=== PATIENT | male | born 1935 ===

== ENCOUNTER 2019-03-15 00:41 | Inpatient (IN) | payer MEDICARE, OTHER ==
[2019-03-14 14:55] LABS: INR 0.99
[~2019-03-15] VITALS: Ht 190.5 cm; Wt 117.9 kg
[2019-03-15] VITALS (18 sets, daily range): BP systolic 112–154; BP diastolic 69–106
[~2019-03-15 00:41] MED LIST: ASPI-1017 PO; CHOL100094 PO; DOC100 PO; FISH OIL1 CAP PO; IBU600 PO; LISI-349 PO; MOM PO; MULT1TAB64 PO; NAPR-1043 PO; PER PO; RIV10 PO; TRA50 PO; TURM1TAB PO; [UNRECOGNIZED DRUG - CODE] TP; protandim PO
[2019-03-15] MEDS ORDERED: ACETAMINOPHEN 500 MG TAB PO ONE (09:00)
[2019-03-15] MEDS ORDERED: NS(*) 0.9% 100 ML BAG 100 ML ONE (09:10)
[2019-03-15] MEDS ORDERED: ONDANSETRON 4 MG/2 ML VIAL ONE (10:22)
[2019-03-15] MEDS ORDERED: KETAMINE HCL-NS 50 MG/5 ML SYR ONE (10:22)
[2019-03-15] MEDS ORDERED: PROPOFOL EMUL(*) 10MG/ML 20 ML 20 ML ONE (10:22)
[2019-03-15] MEDS ORDERED: LIDOCAINE MPF 1% 5 ML VIAL ONE (10:22)
[2019-03-15] MEDS ORDERED: fentaNYL CITR 100 MCG/2 ML AMP ONE (10:22)
[2019-03-15] MEDS ORDERED: FAMOTIDINE 20 MG TAB PO ONE (10:45)
[2019-03-15] MEDS ORDERED: ROPIVACAINE/EPI/CLONIDINE/KET 50 ML SYRINGE INJ ONE (10:45)
[2019-03-15] MEDS ORDERED: MIDAZOLAM 2 MG/2 ML VIAL IVP PRN (10:45)
[2019-03-15] MEDS ORDERED: NORMOSOL R SOLN(*) 1000 ML BAG 1,000 ML IV PRN (10:45)
[2019-03-15] MEDS ORDERED: CELECOXIB 200 MG CAP PO ONE (10:45)
[2019-03-15] MEDS ORDERED: TRANEXAMIC AC 1000 MG/10ML SDV 1,000 MG in DEXTROSE 5% 50 ML BAG 50 ML IV ONE (10:45)
[2019-03-15] MEDS ORDERED: PREGABALIN 75 MG CAPSULE PO ONE (10:45)
[2019-03-15] MEDS ORDERED: LIDOCAINE/SOD BICARB 8.4% SYR ID ONE (10:45)
[2019-03-15] MEDS ORDERED: BACITRACIN 50000 UNIT/VIAL 100,000 UNIT in NS 0.9% 3000 ML IRRIGATION BAG 3,000 ML IR ONE (10:45)
[2019-03-15] MEDS ORDERED: ceFAZolin(*) 2GM/D5W 50ML 50 ML IVPB ONE (10:45)
--- NOTE | 2019-03-15 14:54 | RADIOLOGY IMAGING REPORT ---
FACILITY: [facility] - [place] PATIENT NAME: Lazarus Dominguez : 1935 MR: [id number] V: [id number] EXAM DATE: ORDERING PHYSICIAN: FABIOLA RICHARD TECHNOLOGIST: Location: [facility] [place] Patient: Lazarus Dominguez : 1935 Visit/Account:[id number] Date of Sevice: 03/15/2019 HIP IN OR RIGHT HISTORY: Right total hip arthroplasty ADDITIONAL HISTORY: None. COMPARISON: None. FINDINGS: Single view was obtained of the right hip. There is a right hip prosthesis in place with anatomic al ignment of the components. There is no evidence of fracture or other acute complication. Visualized portions of the bony pelvis are unremarkable. IMPRESSION: Right hip prosthesis with anatomic alignment of the components. There is no radiographic evidence of an acute complication. Report Dictated By: Leona Tang MD at 03/15/2019 2:43 PM Report E-Signed By: Leona Tang MD at 03/15/2019 2:45 PM WSN:[email or web address]
--- NOTE | 2019-03-15 14:58 | RADIOLOGY IMAGING REPORT ---
FACILITY: [facility] PATIENT NAME: Lazarus Dominguez : 1935 MR: [id number] V: [id number] EXAM DATE: ORDERING PHYSICIAN: FABIOLA RICHARD TECHNOLOGIST: [place] [facility] [place] Lazarus Dominguez : 1935 Visit/Account:[id number] Date of Sevice: 03/15/2019 Pelvis one view: HISTORY: Post op placement. Right hip total arthroplasty COMPARISON: 10/26/2012 FINDINGS: Supine view was obtained of the pelvis. Right hip prosthesis is in place with anatomic ali gnment of the components. There is no fracture. There are no findings to suggest loosening of the p rosthesis. Pelvic ring is intact. Left hip prosthesis is in place with anatomic alignment of the co mponents. Degenerative changes present in the lower lumbar spine. IMPRESSION: Interval placement of a right hip prosthesis with anatomic alignment of the components. There is no radiographic evidence of an acute complication. Report Dictated By: Leona Tang MD at 03/15/2019 2:50 PM Report E-Signed By: Leona Tang MD at 03/15/2019 2:51 PM WSN:[email or web address]
[2019-03-15] MEDS ORDERED: diphenhydrAMINE 25 MG CAP PO PRN (15:30)
[2019-03-15] MEDS ORDERED: MAGNESIUM HYDROXIDE* 30ML UDCP PO PRN (15:30)
[2019-03-15] MEDS ORDERED: LR 1000 ML BAG 1000 ML IV PRN (15:30)
[2019-03-15] MEDS ORDERED: PROMETHAZINE 25 MG/ML 1 ML AMP IVP PRN (15:30)
[2019-03-15] MEDS ORDERED: BISACODYL 10 MG SUPP PR PRN (15:30)
[2019-03-15] MEDS ORDERED: MAGNESIUM CITRATE 300 ML BTL PO PRN (15:30)
[2019-03-15] MEDS ORDERED: FLUSH 10 ML SYR IVP PRN (15:30)
[2019-03-15] MEDS ORDERED: diphenhydrAMINE 50 MG/ML VIAL IVP PRN (15:30)
[2019-03-15] MEDS ORDERED: ONDANSETRON 4 MG/2 ML VIAL IVP PRN (15:30)
[2019-03-15] MEDS ORDERED: ZOLPIDEM TARTRATE 5 MG TAB PO PRN (15:30)
[2019-03-15] MEDS ORDERED: HYDROmorphone HCL 2 MG/ML SDV IVP PRN (15:30)
[2019-03-15] MEDS: APAP/HYDROCODONE 325/5 TAB PO PRN ×3 (15:36→22:29)
[2019-03-15] MEDS ORDERED: LISINOPRIL 20 MG TAB PO ONE (16:00)
--- NOTE | 2019-03-15 16:14 | Hospitalist Consultation ---
History of Present Illness Requesting Physician Dr Resendiz Reason for Consult medical management of comorbidities Chief Complaint R hip arthroplasty History of Present Illness 83M admitted after R NEGRA. PMHx significant for constipation and HTN. Tolerated surgery well without complication. Hospitalist service was consulted for management of medical comorbidities. Denies any current concern other than cold, provided warm blanket. History Problems: (1) HTN (hypertension) (2) Arthritis of right hip Home Meds Reported Medications Tea Tree Oil (TEA TREE OIL) 30 Ml Oil, 30 ML TP QDAY 03/08/19 Turm/Ging/Denzel/Yuc/Sonu/Akin/Hor (TUMERSAID TABLET) 1 Each Tablet, 2 EACH PO QDAY 03/08/19 Al Hydroxide/Mg Hydroxide (Milk Of Magnesia) 30 Ml Susp, 30 ML PO Q8H PRN 10/28/12 Docusate Sodium (Colace 100 Mg) 100 Mg Cap, 100 MG PO BID, #40 0 Refills While taking narcotics 10/28/12 Naproxen Sodium (Aleve) 220 Mg Tablet, 220 MG PO BID No NSAIDS until done with Xarelto 10/23/12 Lisinopril (Lisinopril) 20 Mg Tablet, 20 MG PO QAM Restart on 10/30/2012 10/23/12 Discontinued Reported Medications Tramadol Hcl (Ultram) 50 Mg Tab, 50 MG PO Q6H, #80 0 Refills 10/28/12 Ibuprofen (MOTRIN (OR EQUIV)) 600 Mg Tab, 600 MG PO Q6H, #80 0 Refills 10/28/12 Rivaroxaban (XARELTO) 10 Mg Tablet, 10 MG PO QDAY for 35 Days, 0 Refills 10/28/12 Aspirin/Caffeine (JOSE LUIS BACK & BODY CAPLET) 1 Each Tablet, 1 EACH PO QDAY Restart when done with Xarelto 10/23/12 Cholecalciferol (Vitamin D) 1,000 Unit Tablet, 1000 UNIT PO DAILY 10/23/12 Dilley-3 Fatty Acids (Fish Oil) 1 Cap Capsule, 1 CAP PO QDAY 10/23/12 Multivitamin (MULTI VITAMIN DAILY) 1 Each Tablet, 1 EACH PO DAILY 10/23/12 Allergies: Coded Allergies: oxycodone HCl (Verified Adverse Reaction, Intermediate, MENTAL STATUS BETZY, 10/29/12) Patient History: FH: breast cancer MOTHER FH: stroke FATHER Hx Smoking: No (CHEWING TOBACCO-1 CAN EVERY 2 WEEKS ) Smoking Status: Never Smoker Caffeine Intake: Coffee Caffeine/Cups Per Day: 4 CPD Hx Alcohol Use: No Hx Substance Use Disorder: No Review of Systems All Systems Reviewed/Normal: Yes, Except as Noted Cardiovascular: No Chest Pain Gastrointestinal: No Nausea, No Vomiting Musculoskeletal: No Pain Exam Vital Signs Vital Signs Date Time Temp Pulse Resp B/P (MAP) Pulse Ox O2 Delivery O2 Flow Rate FiO2 03/15/19 15:48 92 High-Flow Nasal Cannula 2.0 03/15/19 15:15 72 16 03/15/19 09:36 98.8 154/95 (114) General Appearance: Alert, Awake, No Acute Distress, Afebrile Neuro: No Gross deficits Cardiovascular: Normal Rhythm & Peripheral Pulses Respiratory: No Respiratory Distress GI: Abd Soft and Non-Tender Extremities: Soft and Non Tender, Warm, Pulses, Perfused Assessment and Plan Problems: (1) Arthritis of right hip Assessment & Plan: Status post R NEGRA. Management per primary. 325mg ASA for DVT PPx. (2) HTN (hypertension) Assessment & Plan: Continue chronic lisinopril. (3) Constipation Assessment & Plan: History of well, well controlled on docusate. Will add scheduled Miralax while taking opiate analgesics. Venous Thromboembolism Antithrombotics Is Pt On Any Antithrombotics?: Yes ARIANA HAAS DO Mar 15, 2019 16:14
--- NOTE | 2019-03-15 17:22 | NUR ---
Physical Therapy Impression PT and Nursing both present for initial visit as pt indicates that after previous encounters of anesthesia he has experienced syncopal episodes. Pt was non-symptomatic with position changes and BP's check throughout with Nursing present to assist. After completing side step to head of bed with FWW and CGA, pt became more pale and after returning to supine, pt then became symptomatic. Delayed onset of BP decline and symptomology with high BP initially. Recommend pt use urinal for voiding through the night and attempt orthostatic BP checks with both PT and Nursing present in AM after breakfast. High fall risk associated with current situation. Physical Therapy Goals 1. Pt to be CGA/Min assist for bed mobility and sup<>sit trnsfrs 2. Pt to be SBA/CGA for sit to/from stand transfers 3. Pt to ambulate x 100' with FWW and SBA/CGA with VS in safe range 4. Pt to demo understanding and compliance with posterior hip precautions 5. Pt to jaky up/down 4 steps with rail and SBA/CGA Patient's Goals
[2019-03-15] MEDS: ceFAZolin(*) 2GM/D5W 50ML 50 ML IVPB SCH (20:29)
[2019-03-15] MEDS: ASPIRIN 325 MG TAB PO SCH (20:29)
[2019-03-16] VITALS (10 sets, daily range): BP systolic 85–125; BP diastolic 53–90
[2019-03-16] MEDS: ceFAZolin(*) 2GM/D5W 50ML 50 ML IVPB SCH ×2 (04:23→11:46)
[2019-03-16] MEDS: APAP/HYDROCODONE 325/5 TAB PO PRN ×3 (04:24→15:12)
--- NOTE | 2019-03-16 05:09 | OPERATIVE REPORT 1 ---
EVENT DATE: March 15, 2019 SURGEON: Harish Resendiz MD ANESTHESIOLOGIST: Alessio Woodward DO ANESTHESIA: General plus spina. ASSISTANT PROSECUTING ATTORNEY: Ezra Kay PA-C PREOPERATIVE DIAGNOSIS Right hip osteoarthritis. POSTOPERATIVE DIAGNOSIS Right hip osteoarthritis. PROCEDURE PERFORMED Right total hip arthroplasty. FINDINGS The patient had a significant amount of arthritic changes associated with the hip. It was amenable for a total hip replacement. ESTIMATED BLOOD LOSS About 300 mL. DRAINS None. COMPLICATIONS None. TOURNIQUET TIME Not applicable. IMPLANTS USED A Baldomero size 68 regular metal cluster-hole shell cup and a neutral liner; a 16.25 standard stem with a 40 +0 head and then a dome hole plug and three screw hole plugs. SPECIMENS None. INDICATIONS AND HISTORY This patient is an 83-year-old male who presented to my clinic for evaluation of right hip arthritis and irritation that have been going on for some time. He had had his left hip replaced previously, and he was continuing to do okay with his right hip, but then it started giving him more pain and irritation, so he wanted to go ahead with a total hip arthroplasty. He understood the risks and benefits associated with this, and also that his advanced age may cause more complications associated with it, and he said he was willing to risk that. After discussion of the risks and benefits, an informed consent was obtained at the last clinic visit, and we got him set up to do this today. DESCRIPTION OF PROCEDURE The patient was brought in to the operating room. He and the procedure were both verified. He was first given a spinal by Anesthesia and then placed supine on the operative table and induced and intubated by Anesthesia. He was then turned to the lateral decubitus position with the right hip toward the ceiling, and then the right hip was prepped and draped in the usual fashion and a time- out was observed, verifying the correct patient and procedure. The standard incision was made over the posterolateral aspect of the hip. It was taken through the skin and subcutaneous tissue until I got down to the greater trochanter. Once I was down to the greater trochanter, I then cut through the IT band and then through the gluteal musculature in order to split this apart. I then went to the short external rotators and cut some of the short external rotators and then cut the piriformis and then tagged it for later repair. I then went into the capsule and made a T-shaped incision within the capsule in order to then expose the femoral head, and then dislocated it without too much difficulty. Once I did this, there were a few osteophytes that came out in this area. We then removed those and then cut the femoral neck without any major difficulty in accordance with the Baldomero system. I then irrigated with copious amounts of saline and went into the acetabulum, where I removed some more osteophytes in this area and also a large osteophyte off the posterior aspect that was loose, and some loose bodies from within the joint. Once I then was able to put retractors 360 degrees around the acetabulum, I was then able to remove what little labrum remained and then get down to the true pelvic floor. I then commenced reaming with a [address] up to a 65 mm reamer until we had good rim fit, and then put in a 66 cluster- hole shell without any difficulty. This held well and was down-seated well and had no signs of movement, so then we put in the dome hole plug and three screw hole plugs without any issues, and then put in the final liner. I then irrigated with copious amounts of saline and also used Irrisept throughout this entire time in order to cleanse the area. I then turned attention to the femur, where I was able to internally rotate and flex the leg and then put a retractor posteriorly. I then was able to put in a box cutting osteotome followed by a canal-finding reamer and then a lateralizing reamer. We then commenced broaching all the way up from a 4 to a 16.25. The 16.25 did have pretty good fit, and so therefore we put the trial head and neck on and then relocated it and put it through the motion. It was fairly stable, and the leg lengths appeared good. We then took an intraoperative x-ray showing that everything was in good position. We had good stem fill throughout the femur, and the leg lengths pretty appropriate on the x-rays, but it was difficult to tell secondary to the patient's body habitus. I was then able to dislocate the hip again and irrigate it again with copious amounts of saline using pulsatile lavage and the Irrisept. I then put in the final stem, which was a 16.25 stem, and then the 40 ceramic head on top of this. We then relocated it and put it through range of motion again. It seemed to be stable once again. Therefore, we closed the posterior capsule and then reattached the piriformis through drill holes in the posterior femur, and then irrigated it again and put the pain cocktail in throughout the soft tissue, and then closed the gluteal musculature as well as the IT band using a #2 Quill and then 2-0 Vicryl in the fat layer, followed by a 2-0 Stratafix in the subcutaneous layer, and then a subcuticular 4-0 running Monocryl, then followed by a bioadhesive dressing. The wound was then dressed with soft dressing, and then the patient was awakened and extubated and transferred to PACU with an abduction pillow. He will be admitted overnight to my service. MERCEDES
[2019-03-16] MEDS: LISINOPRIL 20 MG TAB PO SCH (09:00)
--- NOTE | 2019-03-16 09:03 | Hospitalist Progress Note ---
Subjective Progress Notes Subjective This patient was admitted for knee replacement. He had no acute events overnight. Patient Complains of: Cardiovascular: No: Chest Pain Respiratory: No: Shortness of Breath Physical Exam Vital Signs Date Time Temp Pulse Resp B/P (MAP) Pulse Ox O2 Delivery O2 Flow Rate FiO2 03/16/19 07:46 91 Nasal Cannula 2.0 03/16/19 07:24 98.2 82 15 114/59 (77) Intake and Output 03/16/19 07:03 Intake Total 2860 ml Output Total 750 ml Balance 2110 ml Intake Oral 1100 ml IV Total 1760 ml Output Urine Total 650 ml Estimated Blood Loss 100 ml # Voids 2 Cardiovascular: Regular Rate and Rhythm Respiratory: Clear to Auscultation Result Diagram: 03/16/19 0516 Assessment and Plan Problems: (1) Arthritis of right hip Assessment & Plan: He is on aspirin prophylaxis. (2) HTN (hypertension) Assessment & Plan: He is on chronic treatment with lisinopril. (3) Constipation Assessment & Plan: History of well, well controlled on docusate. Will add scheduled Miralax while taking opiate analgesics. Exam Sepsis Risk: No Definite Risk LANCE COELLO DO Mar 16, 2019 09:03
[2019-03-16] MEDS: POLYETHYLENE GLYCOL 17 GM PKT PO SCH (09:35)
--- NOTE | 2019-03-16 10:37 | Medical Nutrition Therapy ---
Nutrition Anthropometrics Height (Inches): 75.00 Height (Calculated Centimeters: 190.996688 Weight (Pounds): 260 Weight (Calculated Kilograms): 117.934 BMI: 32.5 Hx Weight Loss: No Hx Weight Gain: No Zurdo Nutrition Score: Adequate Zurdo Nutrition Risk Score: 14 Dietary Referral Nutrition Risk Factors: Nutrition Risk Comment: Physical Findings Physical Appearance: Obese BMI 30-39 Skin Appearance Skin Appearance: Edema Edema Location Modifier: Edema Location: Type of Edema: Degree of Edema: Gastrointestinal Symptoms GI Symtoms: Tube Present: Bowel Sounds: Recent Bowel Pattern: Stool Characteristics: Nutrition/Food History Good Snacks: Typically eats 2-3 meals per day Nutritional Diagnosis Nutritional Risk Acuity 3: OR & > 80 yrs Past Medical History: HTN, Constipation Nutritional Acuity: 3-Mild Energy Requirement: 3149 Protein Requirement: 118 (1g/kg) Fluid Requirement: 2954 (25mL/kg) Diet Type: Diet as Tolerated GRIS/REG Nutrition Intervention: Cont diet as ordered Nutrition Monitoring & Eval Nutrition Goals: Eat 75-100% Meal Nutrition Follow-Up: Good Intake Nutrition Monitoring: Intake, Weight RD Patient Assessment Time: [address] Assessment Type: RD Assessment Patient Nutrition Acuity: 3-Mild Follow Up Date: Mar 21, 2019 Nutritional Comment: 03/16/19: Spoke with pt and this am. Pt appears well nourished, he reports eating 2-3 meals per day. His reported usual body weight is 260 lbs. He was admitted for R Hip Athroplasty. PMH includes HTN, constipation, inguinal hernia, umbilical hernia. Pertinent current rx include lisinopril, milk of magnesia, dulcolax. Spoke with pt about importance of protein for healing s/p hip surgery. He is currently on diet as tolerated eating 75% x last 2 meals. Suggested consume ~30g protein per meal and discussed foods containing protein. Also recommended following a low sodium diet to help manage HTN. Pt stated he wasn't interested at this time. Will continue to monitor intake, weight, need for additional nutrition education.YASSINE KNIGHT Mar 16, 2019 10:37
--- NOTE | 2019-03-16 11:38 | NUR ---
Physical Therapy Impression PT and nursg both present to assist and monitor BP during transfers due to previous hx of syncope after surgery. Pt did demo delayed onset of orthostatic hypotension with yesterday's session, after side stepping at edge of bed. Pt tolerated supine to sit well with only small decrease in BP. After sitting x 5 minutes at EOB pt tolerated sit to stand with SBA/CGA and BP again decreased, but only slightly and no symptoms reported. Close W/C follow used for ambulation to BR and pt transferred sit to/from stand without difficulty. After brief rest, and again no reported symptoms of decreased BP, pt tolerated ambulation x 30' into hallway and ascended a step. Pt then reported feeling slightly woozy and W/C was available to sit. Pt stated that he would like to try walking back to room. At doorway, pt stated he was beginning to feel weak and was agreeable to sitting in W/C. Pt was then propelled into room and experienced a syncopal event while seated. PT elevated LE's while Nursing increased supplemental O2 and checked BP at 94/58. Pt roused fairly quickly. As we wheeled the W/C around to access the bed pt experienced another sycopal episode with urinary incontinence. After he safely roused from this he was able to complete a Mod assist stand/pivot transfer from W/C to bed and was placed in Trendelenburg position with BP improved at that time. PT assisted with pt care and pt was then left with nursing at end of session. Physical Therapy Goals 1. Pt to be CGA/Min assist for bed mobility and sup<>sit trnsfrs 2. Pt to be SBA/CGA for sit to/from stand transfers 3. Pt to ambulate x 100' with FWW and SBA/CGA with VS in safe range 4. Pt to demo understanding and compliance with posterior hip precautions 5. Pt to jaky up/down 4 steps with rail and SBA/CGA Patient's Goals
--- NOTE | 2019-03-16 17:23 | NUR ---
Physical Therapy Impression BP checked with pt in reclined supine and non-symptomatic. Pt then placed in chair position with leg portion of bed lowered for approximately 10 minutes prior to dinner. Pt was not symptomatic and tolerated eating well. BP checked again and was stable. Pt then moved into chair position with frame tipped up to allow us to simulate a more upright position similar to a tilt table. Pt's BP did decrease to 106/67 with this and pt was somewhat symptomatic, but no syncope occurred. Pt tolerated this position x 30 minutes after meal and indicated that he planned to sleep in a reclined supine position rather than flat tonight, as this was more comfortable. SBAR with nursing. Pt encouraged to be up in chair position for breakfast tomorrow and until PT arrives for first session planned at 9:45, to assist in tolerance for position changes. Physical Therapy Goals 1. Pt to be CGA/Min assist for bed mobility and sup<>sit trnsfrs 2. Pt to be SBA/CGA for sit to/from stand transfers 3. Pt to ambulate x 100' with FWW and SBA/CGA with VS in safe range 4. Pt to demo understanding and compliance with posterior hip precautions 5. Pt to jaky up/down 4 steps with rail and SBA/CGA Patient's Goals
[2019-03-16] MEDS: ASPIRIN 325 MG TAB PO SCH (21:49)
[2019-03-17 03:56] VITALS: BP 138/87
[2019-03-17 07:28] VITALS: BP 158/94
[2019-03-17] MEDS: APAP/HYDROCODONE 325/5 TAB PO PRN ×3 (08:34→21:17)
[2019-03-17] MEDS: DOCUSATE SODIUM 100 MG CAP PO SCH ×2 (08:34→21:17)
[2019-03-17] MEDS: POLYETHYLENE GLYCOL 17 GM PKT PO SCH (08:34)
[2019-03-17] MEDS: LISINOPRIL 20 MG TAB PO SCH (09:00)
[2019-03-17 10:41] VITALS: BP 133/72
--- NOTE | 2019-03-17 10:51 | Hospitalist Progress Note ---
Subjective Progress Notes Subjective No acute events overnight. Patient Complains of: Cardiovascular: No: Chest Pain, Palpitations Respiratory: No: Shortness of Breath Physical Exam Vital Signs Date Time Temp Pulse Resp B/P (MAP) Pulse Ox O2 Delivery O2 Flow Rate FiO2 03/17/19 09:37 87 03/17/19 08:36 Nasal Cannula 3.0 03/17/19 07:28 99.5 88 20 158/94 (115) Intake and Output 03/17/19 01:03 Intake Total 1945 ml Output Total 500 ml Balance 1445 ml Intake Oral 1840 ml IV Total 105 ml Output Urine Total 500 ml # Voids 2 General Appearance: Alert, Awake, No Acute Distress Neuro: No Gross deficits Cardiovascular: Regular Rate and Rhythm Respiratory: No Respiratory Distress Result Diagram: 03/17/19 0435 Assessment and Plan Problems: (1) Arthritis of right hip Assessment & Plan: He is on aspirin prophylaxis. He is being seen by PT, who will continue to work with him today. He had a syncopal episode with PT on 03/16. Blood pressure med's have been held due to decreased pressure. Will continue to monitor BP while working with PT. (2) HTN (hypertension) Assessment & Plan: He is on chronic treatment with lisinopril. Holding Lisinopril due to decreased pressure and near syncopal/syncopal episode while working with Physical therapy. (3) Constipation Assessment & Plan: History of postop ileus, well controlled on docusate. Will add scheduled Miralax while taking opiate analgesics. Exam Sepsis Risk: No Definite Risk IVY MCGRAW Mar 17, 2019 10:51
[2019-03-17 13:52] VITALS: BP 103/73
--- NOTE | 2019-03-17 14:08 | NUR ---
Physical Therapy Impression BP in chair position after 90 minutes (128/72); chair position tilted further forward (120/71); pt then transferred to EOB and sat upright x 7 minutes with BP then (130/82). Pt ambulated in hallway with close W/C follow x total of 90' and returned to room with slightly more pale coloration (115/67). Pt was agreeable to sit in hip chair x 10 minutes (104/60) pt noted to be more pale and lightheaded. Pt returned to bed with [id number] transfer and CGA/Min assist. Plan to have pt sit in chair position for evening meal tonight and again for breakfast prior to PT's arrival tomorrow. Physical Therapy Goals 1. Pt to be CGA/Min assist for bed mobility and sup<>sit trnsfrs 2. Pt to be SBA/CGA for sit to/from stand transfers 3. Pt to ambulate x 100' with FWW and SBA/CGA with VS in safe range 4. Pt to demo understanding and compliance with posterior hip precautions 5. Pt to jaky up/down 4 steps with rail and SBA/CGA Patient's Goals
[2019-03-17 19:27] VITALS: BP 130/76
[2019-03-17] MEDS: ASPIRIN 325 MG TAB PO SCH (21:17)
[2019-03-17 23:45] VITALS: BP 137/93
[2019-03-18] VITALS (7 sets, daily range): BP systolic 106–137; BP diastolic 72–87
[2019-03-18] MEDS: APAP/HYDROCODONE 325/5 TAB PO PRN ×2 (02:57→13:30)
[2019-03-18] MEDS ORDERED: HYDR-653 PO ×2 (07:27→13:24)
[2019-03-18] MEDS: POLYETHYLENE GLYCOL 17 GM PKT PO SCH (08:39)
[2019-03-18] MEDS: DOCUSATE SODIUM 100 MG CAP PO SCH (08:39)
--- NOTE | 2019-03-18 10:19 | Hospitalist Progress Note ---
Subjective Progress Notes Subjective No acute event overnight. He states little to no pain. Patient Complains of: Neurological: No: Confusion, Weakness Cardiovascular: No: Chest Pain, Palpitations Respiratory: No: Congestion, Shortness of Breath Physical Exam Vital Signs Date Time Temp Pulse Resp B/P (MAP) Pulse Ox O2 Delivery O2 Flow Rate FiO2 03/18/19 07:55 92 Nasal Cannula 3.0 03/18/19 06:58 98.8 89 16 106/74 (85) Intake and Output 03/18/19 01:03 Intake Total 560 ml Output Total 1175 ml Balance -615 ml Intake Oral 560 ml Output Urine Total 1175 ml # Voids 2 General Appearance: Alert, Awake, No Acute Distress Neuro: No Gross deficits Cardiovascular: Regular Rate and Rhythm Respiratory: No Respiratory Distress, Clear to Auscultation Result Diagram: 03/18/1953003/18/19530 Assessment and Plan Problems: (1) Arthritis of right hip Assessment & Plan: He is on aspirin prophylaxis. He is being seen by PT, who will continue to work with him today. He had a syncopal episode with PT on 03/16. Blood pressure med's have been held due to decreased pressure. Will continue to monitor BP while working with PT. No syncopal episodes on 03/17. PT will work with him again today and evaluate possibility for DC and possible further rehab needs. (2) HTN (hypertension) Assessment & Plan: He is on chronic treatment with lisinopril. Holding Lisinopril due to decreased pressure and near syncopal/syncopal episode while working with Physical therapy. Will continue to monitor BP and re-evaluate treatment as needed. (3) Constipation Assessment & Plan: History of postop ileus, well controlled on docusate. Will add scheduled Miralax while taking opiate analgesics. Exam Sepsis Risk: No Definite Risk IVY MCGRAW Mar 18, 2019 10:19
--- NOTE | 2019-03-18 10:35 | NUR ---
Physical Therapy Impression PT arrived at 9:35 to check pt's position. Pt has been up in chair position for approximately 40 minutes. PT tilted bed up and checked BP (122/77). Pt agreeable to attempt ambulation with PT and nursing after sitting in this position x 20 minutes (106/87). PT then returned at 9:55 to initiate mobility and Nursing present to assist for safety and check BP's throughout. BP (127/74) after sit to stand transfer. PT with CGA and Nursing assist with observation of pt for signs or symptoms of low BP. Pt did not become pale during mobility and was able to ambulate 80' with a 180 degree turn and return to room (109/79). Pt agreeable to sitting up in hip chair after treatment and was not symptomatic at that time. PT returned to check BP again after 10 minutes in chair and BP had dropped, with pt noting some upset stomach and paleness also noted. Pt completed stand pivot transfer from hip chair to bed with PT and SBA by nursing for safety. BP normalized after supine positioning. PT to return for second session around noon to determine if pt is consistently improving. From a hip mobility standpoint pt demos excellent understanding of precautions. PT recommends [facility] for further therapy upon d/c when medically appropriate. Physical Therapy Goals 1. Pt to be CGA/Min assist for bed mobility and sup<>sit trnsfrs 2. Pt to be SBA/CGA for sit to/from stand transfers 3. Pt to ambulate x 100' with FWW and SBA/CGA with VS in safe range 4. Pt to demo understanding and compliance with posterior hip precautions 5. Pt to jaky up/down 4 steps with rail and SBA/CGA Patient's Goals
--- NOTE | 2019-03-18 11:28 | NUR ---
PHYSICAL THERAPY INFORMATION TRANSFER SHEET BED MOBILITY: Minimum Assistance TRANSFERS: Standby Assistance 2 person assist to monitor BP and ensure safety with delayed onset of orthostatic hypotension. CGA GAIT: 90 ' with close W/C follow to ensure safety O2 RW and Standby Assistance CGA Weightbearing Status: Weight bearing as jaky STAIRS: 1 with rail and CGA. EXERCISES: Verbalizes Needs: Yes Understands Directions Yes Cooperative: Yes Family Teaching: Yes Physical Therapy Comment: Pt has a history of syncopal episodes in the initial few days following previous surgeries. Caution taken during this stay to minimize fall risk. Pt is improving gradually with time and today is able to ambulate 90' with FWW and complete toileting while standing without exhibiting symptoms. Following treatment, after sitting up in hip chair however, Pt did have a decrease in BP and was symptomatic. Pt plans to sleep in his recliner at home to address this and states that with previous hospitalizations after surgery he had a similar pattern of recovery.
--- NOTE | 2019-03-18 12:44 | NUR ---
Physical Therapy Impression VS within normal limits throughout treatment session of bed mobility from flat bed, sit to/from stand transfers and ambulation in hallway x 100' with FWW and CGA for safety. Pt/CG's feel confident to d/c home at this time and pt previously address up/down platform step with good technique and understanding for hip precautions. CG's note that they will be available to assist and can transport pt home in a reclined position in car. Physical Therapy Goals 1. Pt to be CGA/Min assist for bed mobility and sup<>sit trnsfrs 2. Pt to be SBA/CGA for sit to/from stand transfers 3. Pt to ambulate x 100' with FWW and SBA/CGA with VS in safe range 4. Pt to demo understanding and compliance with posterior hip precautions 5. Pt to jaky up/down 4 steps with rail and SBA/CGA Patient's Goals
[2019-03-18] MEDS ORDERED: ASPI-757 PO (13:07)
[2019-03-18] MEDS ORDERED: POLY17PO25 PO (13:07)
== END 2019-03-18 14:50 | disposition home or self-care (01) | DRG 470 ==
LOC: OR 00:41 → MED 15:15
PROVIDERS: ADMIT Orthopaedic Surgery; ATTEND Orthopaedic Surgery
PROC: 0SR902A Replacement of Right Hip Joint with Metal on Polyethylene Synthetic Substitute, Uncemented, Open Approach (ICD-10-PCS; principal; 2019-03-15 12:00)
DX: M16.11 Unilateral primary osteoarthritis, right hip (principal); I10 Essential (primary) hypertension; F17.220 Nicotine dependence, chewing tobacco, uncomplicated; K59.09 Other constipation; Z96.653 Presence of artificial knee joint, bilateral; Z88.5 Allergy status to narcotic agent
CPT/HCPCS: 36415; 72170; 82310; 82374; 82435; 82565; 82947; 84132; 84295; 84520; 85014; 85018; 85610; 86850; 86900; 86901; 97162; 97165; J0690; J2001; J2250; J2405; J2704; J3010; J3490; J7050; J7060